=== PATIENT | female | born 1950 | race Caucasian/White ===

== ENCOUNTER → 2017-02-08 | Outpatient (CLI) | payer MEDICARE ==
--- NOTE | 2017-02-12 10:54 | RSPPFT ---
DATE OF PROCEDURE: 02/08/17 COMMENTS: VOLUMES DYNAMIC: FVC and FEV1 normal. STATIC: FRC, RV and TLC normal. FLOWS: FEV1% mildly reduced; FEF 25-75 moderately reduced. DIFFUSION: Mildly reduced. FLOW VOLUME LOOP: Terminal airflow obstruction. IMPRESSION: Very mild terminal airflow obstruction and a mild reduction in diffusion with no restriction and no significant improvement post-bronchodilator.
== END ==
LOC: PHRSP 08:29
PROVIDERS: ATTEND Internal Medicine
DX: J44.9 Chronic obstructive pulmonary disease, unspecified (principal)
CPT/HCPCS: 94060; 94620; 94726; 94729